=== PATIENT | male | born 1985 | race Caucasian/White ===

== ENCOUNTER 2021-08-13 07:51 | Emergency (ER) | payer SELFPAY ==
[~2021-08-13] VITALS: Ht 165.1 cm; Wt 147.4 kg
[2021-08-13 08:07] VITALS: BP 135/82
== END 2021-08-13 10:32 | disposition home or self-care (01) ==
LOC: ED 07:51
DX: U07.1 COVID-19 (principal); Z91.040 Latex allergy status